=== PATIENT | male | born 1950 ===

== ENCOUNTER → 2017-02-20 18:50 | Outpatient (CLI) | payer MEDICARE, OTHER ==
[2017-02-20 19:48] LABS: ALT (SGPT) 49 U/L (10-68); CHOL - HDL RATIO 8.7 ratio (2.3-4.9); CHOLESTEROL, TOTAL 261 mg/dL (0-200); HDL CHOLESTEROL 30 mg/dL (32-96)
[2017-02-20 20:09] LABS: TRIGLYCERIDE 517 mg/dL (30-200)
== END | disposition home or self-care (01) ==
LOC: D.LABREF 18:50
PROVIDERS: Internal Medicine Interventional Cardiology
DX: I10 Essential (primary) hypertension (principal)